=== PATIENT | female | born 1965 | race Caucasian/White ===

== ENCOUNTER → 2021-09-07 | Outpatient (CLI) | payer OTHER ==
[~2021-09-07] MED LIST: CLONAZEPAM1 MG PO; GABAPENTIN600 MG PO; MEGA BIOTIN10000 MCG PO; VITAMIN D350 MC3 PO; WOMEN'S DAILY1 EACH PO
== END ==
LOC: EXRD 14:30
DX: E04.2 Nontoxic multinodular goiter (principal)
CPT/HCPCS: 76536